=== PATIENT | male | born 1980 | race Caucasian/White ===

== ENCOUNTER 2025-01-02 09:29 | Outpatient (CLI) | payer BC, SELFPAY ==
--- OUTSIDE RECORDS SUMMARY | 2025-01-02 09:53 | XMS_ITS | Referral Summary ---
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 Gender Identity Not on file Sexual Orientation Not on file Last Filed Vital Signs Vital Sign Reading Time Taken Comments Blood Pressure 118/84 02/06/2024 11:15 AM CDT Pulse 124 02/06/2024 11:15 AM CDT Temperature 36.5 C (97.7 F) 02/06/2024 11:15 AM CDT Respiratory Rate 16 02/06/2024 11:15 AM CDT Oxygen Saturation 99% 02/06/2024 11:15 AM CDT Inhaled Oxygen Concentration - - Weight 95.3 kg (210 lb) 02/06/2024 11:15 AM CDT Height 175.3 cm (5' 9 ) 02/06/2024 11:15 AM CDT Body Mass Index 31.01 02/06/2024 11:15 AM CDT Plan of Treatment Not on file Insurance BS FEDERAL Member Subscriber Plan / Payer (Ef fective 2015-Present) Name:Bryan Hung Relation to Subscriber:Self Name:Bryan Hung Payer ID:[id number] (NAIC) Group ID:[id number] Type:[employer] Address: [facility] [id number] [id number] Care Teams X Ray Physician Relationship Specialty Start Date End Date Sherri Fried NP [address] [place] [address] DR KAUFMAN [address] [place] [id number] PCP - General Internal Medicine 02/06/24
--- OUTSIDE RECORDS SUMMARY | 2025-01-02 09:53 | XMS_ITS | Clinical Summary ---
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 Gender Identity Not on file Sexual Orientation Not on file Obstetrics History Last Filed Vital Signs Vital Sign Reading [...] 02/06/2024 11:15 AM CDT Plan of Treatment Health Maintenance Due Date Last Done Comments Colon Cancer Screening-Colonoscopy 1979 Depression Screening 1979 Hepatitis C Screening 1979 DTaP/Tdap/Td Vaccine (1 - Tdap) 12/11/1990 Varicella Vaccines (1 of 2 - 13+ 2-dose series) 12/11/1992 Hepatitis B Screening 12/11/1997 Regular Well Visit/Exam 18-64 12/11/1997 Influenza Vaccine (Season Ended) 2025 HPV Vaccines Aged Out No longer eligi ble based on patient's age to complete this topic Pneumococcal vaccine <65 Aged Out No longer eligible based on patient's age to complete this topic Insurance [facility] FEDERAL Care Teams Tug Hand Relationship Specialty Start Date End Date Sherri Fried NP [facility] [facility] [address] KAUFMAN [address] [place] [address] PCP - General Internal Medicine 02/06/24
[2025-01-02 18:11] LABS: Basophils Absolute Auto 0.1 K/mm3 (0.0-0.1); Basophils Percent Auto 1.1 % (0.2-1.2); Eosinophils Absolute Auto 0.2 K/mm3 (0-0.3); Eosinophils Percent Auto 3.3 % (0-4.4); Hematocrit 52.5 % (42.0-52.0); Hemoglobin 16.9 g/dL (14.0-18.0); Immature Granulocyte Absolute 0.01 K/mm3 (0.00-0.031); Immature Granulocyte Percent A 0.2 % (0-0.5); Lymphocytes Absolute Auto 2.37 K/mm3 (0.9-3.2); Lymphocytes Percent Auto 37.6 % (18.3-44.2); Mean Corpuscular HGB Conc 32.2 g/dl (32-36); Mean Corpuscular Volume 90.2 fl (80-100); Mean Platelet Volume 8.9 fl (7.4-10.4); Monocytes Absolute Auto 0.6 K/mm3 (0.1-0.6); Neutrophils Absolute Auto 3.1 K/mm3 (1.3-6.7); Neutrophils Percent Auto 48.8 % (45.5-73.1); Platelet Count Result 292 k/mm3 (150-375); Red Blood Count 5.82 M/mm3 (4.6-6.20); Red Cell Distribution Width 13.4 % (11.5-14.5); White Blood Count 6.3 K/mm3 (4.5-10.0)
[2025-01-02 18:43] LABS: Alanine Aminotransferase 23 U/L (6-50); Albumin Level 4.3 g/dL (3.5-5.1); Alkaline Phosphatase 65 U/L (38-126); Anion Gap 8 mmol/L (4-12); Aspartate Amino Transferase 29 U/L (17-59); Bilirubin,Total 0.9 mg/dL (0.2-1.3); Blood Urea Nitrogen 19 mg/dL (9-20); Calcium 9.2 mg/dL (8.4-10.2); Carbon Dioxide 29 mmol/L (22-30); Chloride 102 mmol/L (98-107); Cholesterol 180 mg/dL (0-200); Estimated Glomerular Filt Rate > 60; Glucose 106 mg/dL (65-110); HDL Direct 50 mg/dL; Potassium 4.5 mmol/L (3.4-5.0); Sodium 139 mmol/L (137-145); Triglycerides 70 mg/dL (<150)
[2025-01-02 18:46] LABS: Vitamin D 25 Hydroxy 35.9 ng/mL
[2025-01-02 18:54] LABS: LDL Cholesterol Direct 100 mg/dL
[2025-01-02 19:13] LABS: Prostate Specific Antigen 0.6 ng/mL (< OR = 4.0)
== END 2025-01-02 09:30 | disposition home or self-care (01) ==
LOC: ANHGOSHLAB 09:30
PROVIDERS: PCP Nurse Practitioner; Visit Provider Nurse Practitioner
DX: E78.5 Hyperlipidemia, unspecified (principal); E55.9 Vitamin D deficiency, unspecified; Z12.5 Encounter for screening for malignant neoplasm of prostate
CPT/HCPCS: 36415; 80053; 80061; 82306; 84153; 85025; G0103

== ENCOUNTER 2025-01-15 03:47 | Day surgery (SDC) | payer BC, SELFPAY ==
[2025-01-13 15:10] VITALS: BMI 31.7
--- OUTSIDE RECORDS SUMMARY | 2025-01-15 03:50 | XMS_ITS | Clinical Summary ---
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 FEDERAL Care Teams Edge Stainer Machine Relationship Specialty Start Date End Date Sherri Fried NP [facility] [address] KAUFMAN [address] [place] [address] PCP - General Internal Medicine 02/06/24
--- OUTSIDE RECORDS SUMMARY | 2025-01-15 03:50 | XMS_ITS | Referral Summary ---
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
[2025-01-15 12:58] VITALS: BP 131/96; PULSE 82; RESP 18; TEMP 35.9; O2SAT 99
[2025-01-15] MEDS: LACTATED RINGERS 1,000 ML 150 ML IV CONT (13:06)
--- NOTE | 2025-01-15 13:10 | WPDANESEPPF ---
Anes - Initial Pre Proc Eval Procedure: Operation Date: 01/15/25 13:30 Proposed Procedures p Screening Colonoscopy - Oc Horner MD Date/Time: 01/15/25 13:10 Surgeon: Oc Horner MD Pre Op Diagnosis: Encounter for screening for malignant neoplasm of Patient Data Age: 44 Gender: M Height: 1.75 m Weight: 95.3 kg Last Vital Signs Temp 96.6 F L 01/15/25 12:58 Pulse 82 01/15/25 12:58 Resp 18 01/15/25 12:58 BP 131/96 H 01/15/25 12:58 Pulse Ox 99 01/15/25 12:58 O2 Del Method Room Air 01/15/25 12:58 Allergies Allergy/AdvReac Type Severity Reaction Status Date / Time avocado Allergy Severe Swelling Verified 01/15/25 12:56 of Lip/Tongue/Throat pollen extracts Allergy Severe Sneezing Verified 01/15/25 12:56 red dye Allergy Intermediate Headache Verified 01/15/25 12:56 Home Medications ?Medication ?Instructions ?Recorded ?Confirmed ?Type No Home Medications 01/02/25 01/15/25 History Patient hx anesthesia problems: none Family hx anesthesia problems: none Results Review: All pre-operative results and documents have been reviewed as part of the pre-operative evaluation. [facility] Social History Social History (Updated 12/28/23 @ 11:30 by Christy Milton [facility]) Smoking status: Never smoker Alcohol intake: current Alcohol use details: rarely, 1-2 times a year Substance use type: does not use Do You Feel Safe in your Home?: Yes Lack of Transportation: No Lack of Food: Never True Current Housing: I Have Housing Concerned About Future Housing: No Difficulty Paying Gas/Electric Bills: No Difficulty Paying for Meds: No Currently Unemployed: No Education: Associate Degree Difficulty w/ Childcare or Family Care: No Living arrangements: with family Spiritual care concerns: No Anes - Eval Final PreProcedure Day of Procedure 01/15/25 13:10 Patient weight: obese Heart: regular rate and rhythm Lungs: clear to auscultation Airway: Mallampati scale class II Neurological: alert and oriented Last oral intake: >/= 8 hours ASA classification: II Emergent: no Anesthetic plan: proceed Anesthesia type and monitoring: general GIVS and standard monitoring Results Review: All pre-operative results and documents have been reviewed as part of the pre-operative evaluation. Informed Consent: The patient's anesthetic plan and its attendant risks and benefits were discussed with the patient/family/POA. Questions were solicited and answers provided to the satisfaction of the patient/family/POA.
--- NOTE | 2025-01-15 14:23 | P.HP_ITS ---
H&P: HPI History of Present Illness Date/Time: 01/15/25 14:23 Chief Complaint: Screening colonoscopy Narrative: This is the patient's first colonoscopy. There are no GI symptoms and there is no family history of colorectal cancer. Review of Systems Review of Systems: All systems reviewed & are unremarkable except as noted in HPI and below [facility] Social History Social History (Updated 12/28/23 @ 11:30 by Christy Milton [facility]) Smoking status: Never smoker Alcohol intake: current Alcohol use details: rarely, 1-2 times a year Substance use type: does not use Do You Feel Safe in your Home?: Yes Lack of Transportation: No Lack of Food: Never True Current Housing: I Have Housing Concerned About Future Housing: No Difficulty Paying Gas/Electric Bills: No Difficulty Paying for Meds: No Currently Unemployed: No Education: Associate Degree Difficulty w/ Childcare or Family Care: No Living arrangements: with family Spiritual care concerns: No Meds Home Medications and Allergies Home Medications ?Medication ?Instructions ?Recorded ?Confirmed ?Type No Home Medications 01/02/25 01/15/25 History Allergies Allergy/AdvReac Type Severity Reaction Status Date / Time avocado Allergy Severe Swelling Verified 01/15/25 12:56 of Lip/Tongue/Throat pollen extracts Allergy Severe Sneezing Verified 01/15/25 12:56 red dye Allergy Intermediate Headache Verified 01/15/25 12:56 Vital Signs Vital Signs - 24 hr 01/15/25 12:58 Temperature 96.6 F L Pulse Rate 82 Respiratory Rate 18 Blood Pressure 131/96 H Pulse Oximetry 99 Oxygen Delivery Room Air Exam Const: General: cooperative and healthy appearing Resp: Effort & Inspection: normal respiratory effort and able to speak in complete sentences Auscultation: clear to auscultation bilaterally Cardio: Rate: regular rate Rhythm: regular rhythm GI: Inspection: normal to inspection GI Palp: No No hepatosplenomegaly present Auscultation: normal bowel sounds Rectal Exam: deferred Skin: General skin exam: normal color Psych: Appearance: grossly normal Mental Status: mental status grossly normal Assessment and Plan Assessment and plan (1) Screening for colon cancer: Code(s): Z12.11 - Encounter for screening for malignant neoplasm of colon Status: Acute Assessment and Plan: The patient is deemed a good candidate for the procedure. Consent signed. Will proceed.
[2025-01-15] MEDS: SIMETHICONE ORAL SUSPENSION 20 MG/0.3 ML 30 ML BOTTLE 0.6 ML IRRIGATION (14:37)
[2025-01-15 14:53] VITALS: BP 109/74; PULSE 89; RESP 18; O2SAT 96
[2025-01-15 15:03] VITALS: BP 106/75; PULSE 80; RESP 23; O2SAT 97
[2025-01-15 15:13] VITALS: BP 114/81; PULSE 77; RESP 20; O2SAT 96
== END 2025-01-15 15:19 | disposition home or self-care (01) ==
PROVIDERS: PCP Nurse Practitioner; Referring Provider Nurse Practitioner; Visit Provider Internal Medicine Gastroenterology
PROC: 0DJD8ZZ Inspection of Lower Intestinal Tract, Via Natural or Artificial Opening Endoscopic (ICD-10-PCS; CPT 45378; principal; 2025-01-15 13:30)
DX: Z12.11 Encounter for screening for malignant neoplasm of colon (principal); E66.9 Obesity, unspecified; Z68.31 Body mass index [BMI] 31.0-31.9, adult
CPT/HCPCS: 45378; J2003; J2704; J7120